=== PATIENT | female | born 1955 | race Caucasian/White ===

== ENCOUNTER → 2020-06-27 12:08 | Outpatient (CLI) | payer BC, SELFPAY ==
--- NOTE | 2020-06-27 12:25 | MRI_ITS ---
STUDY: MRI BRAIN WITH AND WITHOUT CONTRAST REASON FOR EXAM: Female, 65 years old. R sided headaches x 2.5 weeks TECHNIQUE: Standardized multiplanar fat and water weighted pulse sequences were obtained. DOTAREM 20 CC IV was administered for the contrast portion of the examination. COMPARISON: None. FINDINGS: Normal size of the ventricles and extra-axial spaces for the patient''s age. Normal white matter tracts of the supratentorial brain. There is no evidence for recent intracranial ischemia or other cause of cytotoxic edema on diffusion weighted imaging (DWI). Normal T2* images of the brain without demonstrated susceptibility artifact. There is no demonstrated hemosiderin stain. Normal bilateral basal ganglia. Normal thalami. There is no extra-axial fluid accumulation. Normal flow voids within the major intracranial circulation suggesting patency by spin echo criteria. Normal venous enhancement. There is no enhancing intra-axial or extra-axial abnormality. Normal sella turcica, pituitary gland, infundibular stalk, optic chiasm and hypothalamus. Normal tectal plate and pineal gland. Normal midbrain, denise and medulla. Normal cerebellum. Normal basal cisterns. Normal bilateral temporal bones. Normal bilateral internal auditory canals. No demonstrated orbital abnormality, within the constraints of a routine brain study. Normal visualized paranasal sinuses. Normal calvarium and skull base. Normal visualized soft tissue structures. Normal visualized upper cervical spine. MRI/Brain W/WO Contrast IMPRESSION: Normal unenhanced and enhanced MRI of the brain. Electronically Signed: Smith Ya MD at 14:40 EST Tel , Service support ,
== END ==
PROVIDERS: PCP Internal Medicine; Referring Provider Internal Medicine; Visit Provider Internal Medicine
DX: R51.9 Headache, unspecified (principal)
CPT/HCPCS: 70553; A9575

== ENCOUNTER → 2024-02-05 | Outpatient (CLI) | payer MEDICARE, OTHER, SELFPAY ==
--- NOTE | 2024-02-05 09:30 | MRI_ITS ---
STUDY: MRI CERVICAL SPINE WITHOUT CONTRAST REASON FOR EXAM: Female, 68 years old patient with neck pain. TECHNIQUE: Standardized fat and water weighted pulse sequences were obtained in the sagittal and axial planes. COMPARISON: Prior comparison studies are not available for review at this time. FINDINGS: Normal foramen magnum and brainstem-cervical cord junction. Normal craniovertebral junction. There are degenerative changes of the anterior atlantoaxial articulation. Normal odontoid process. Normal cervical lordosis. Normal vertebral bodies and posterior osseous elements. C2-3: Normal endplates. Normal disc height, signal and morphology. Normal central canal and intervertebral neural foramina. C3-4: There is mild disk bulge and osteophyte complex. There is mild degenerative arthropathy of the uncovertebral and facet joints. Bilateral neuroforamina are narrowed without MR evidence for nerve impingement. There is no appreciable acquired central canal stenosis. C4-5: There is mild disk bulge and osteophyte complex. There is mild degenerative arthropathy of the uncovertebral and facet joints. Bilateral neuroforamina are narrowed without MR evidence for nerve impingement. There is no appreciable acquired central canal stenosis. C5-6: There is narrowing of the disk space. There is mild disk bulge and osteophyte complex that contacts the ventral cervical spinal cord. There is mild degenerative arthropathy of the uncovertebral and facet joints. Bilateral neuroforamina are narrowed without MR evidence for nerve impingement. There is mild acquired central canal stenosis. C6-7: There is narrowing of the disc.There is mild disk bulge and osteophyte complex. There is moderately severe degenerative arthropathy of the uncovertebral joints and mild degenerative arthropathy of the facet joints. Bilateral neuroforamina are narrowed without MR evidence for nerve impingement. There is mild acquired central canal stenosis. C7-T1: Normal endplates. Normal disc height, signal and morphology. Normal central canal and intervertebral neural foramina. Normal cervical cord. There is no demonstrated cervical cord syrinx cavity. Normal visualized soft tissue structures. Major flow voids are present within the neck. MRI/Spine Cervical (Routine) IMPRESSION: Multilevel degenerative changes of the cervical spine with neuroforaminal narrowing and central canal stenosis, as described. Electronically Signed: Preethi Paredes MD at 1:53 EDT ,
== END | disposition home or self-care (01) ==
LOC: MRI 08:49
PROVIDERS: PCP Internal Medicine; Referring Provider Internal Medicine; Visit Provider Internal Medicine
DX: M54.6 Pain in thoracic spine (principal); M54.2 Cervicalgia; G89.29 Other chronic pain
CPT/HCPCS: 72141